=== PATIENT | female | born 1975 | race Caucasian/White ===

== ENCOUNTER 2016-11-10 05:36 | Emergency (ER) | payer MEDICAID ==
[~2016-11-10] VITALS: Ht 162.6 cm; Wt 93.5 kg
[~2016-11-10 05:36] MED LIST: ALBU17AE27 IH; D ME
[2016-11-10] MEDS ORDERED: DEXAMETHASONE SOD PHOS 4 MG/ML 5 ML VIAL IM ONE (06:15)
[2016-11-10 07:15] VITALS: BP 125/74
== END 2016-11-10 07:50 | disposition home or self-care (01) ==
LOC: EMS 05:38
DX: J02.8 Acute pharyngitis due to other specified organisms (principal); B97.89 Other viral agents as the cause of diseases classified elsewhere; J45.909 Unspecified asthma, uncomplicated; F17.210 Nicotine dependence, cigarettes, uncomplicated
CPT/HCPCS: 87430; 96372; 99283; J1100

== ENCOUNTER 2018-05-15 03:46 | Emergency (ER) | payer MEDICAID ==
[~2018-05-15] VITALS: Ht 162.6 cm; Wt 84.0 kg
[~2018-05-15 03:46] MED LIST changes: -D ME
[2018-05-15] MEDS ORDERED: ACETAMINOPHEN 500 MG TABLET PO ONE (04:15)
[2018-05-15] MEDS ORDERED: IBUPROFEN 800 MG TABLET PO ONE (06:15)
[2018-05-15] MEDS ORDERED: DEXAMETHASONE 4 MG TABLET PO ONE (07:30)
[2018-05-15 09:09] LABS: INFLUENZA TYPE A NEGATIVE FOR TYPE A (NEGATIVE); INFLUENZA TYPE B NEGATIVE FOR TYPE B (NEGATIVE)
[2018-05-15 10:50] VITALS: BP 125/68
== END 2018-05-15 10:50 | disposition home or self-care (01) ==
LOC: EMS 03:46
DX: J02.9 Acute pharyngitis, unspecified (principal); R42 Dizziness and giddiness; M79.10 Myalgia, unspecified site; J45.909 Unspecified asthma, uncomplicated; F17.210 Nicotine dependence, cigarettes, uncomplicated; Z98.51 Tubal ligation status
CPT/HCPCS: 87430; 87804; 99284; 99406; J8540

== ENCOUNTER 2021-08-20 05:04 | Emergency (ER) | payer MEDICAID ==
[~2021-08-20] VITALS: Ht 162.6 cm; Wt 97.7 kg
[2021-08-20 05:06] VITALS: BP 142/90
[2021-08-20] MEDS ORDERED: ACETAMINOPHEN 500 MG TABLET PO ONE (07:30)
[2021-08-20] MEDS ORDERED: KETOROLAC TROMETHAMINE 30 MG/ML VIAL IM ONE (07:30)
[2021-08-20] MEDS ORDERED: LIDOCAINE 5% TRANSDERMAL PATCH TD ONE (07:30)
[2021-08-20] MEDS ORDERED: DIAZEPAM 5 MG TABLET PO ONE (07:30)
== END 2021-08-20 08:30 | disposition left against medical advice (07) ==
LOC: EMS 05:04
DX: M25.551 Pain in right hip (principal); M25.552 Pain in left hip; Z53.21 Procedure and treatment not carried out due to patient leaving prior to being seen by health care provider